=== PATIENT | female | born 1990 | race Hispanic/Latino ===

== ENCOUNTER 2024-04-02 10:49 | Emergency (ER) | payer BC, OTHER ==
[~2024-04-02] VITALS: Ht 154.9 cm; Wt 104.3 kg
[2024-04-02 11:01] VITALS: BP 124/87; PULSE 92; RESP 20
[2024-04-02] MEDS ORDERED: CEPH500C2 PO (12:16)
[2024-04-02] MEDS ORDERED: FAMO20TA8 PO (12:16)
[2024-04-02] MEDS: FAMOTIDINE 20MG TAB PO ONE (12:53)
[2024-04-02] MEDS: CEPHALEXIN 500 MG CAPSULE PO ONE (12:53)
[2024-04-02] MEDS: DIPHENHYDRAMINE HCL 25 MG CAPSULE PO ONE (12:53)
== END 2024-04-02 12:57 | disposition home or self-care (01) ==
LOC: EDH 10:49
DX: L03.211 Cellulitis of face (principal); Z98.890 Other specified postprocedural states
CPT/HCPCS: 99284; Q0163